=== PATIENT | female | born 1980 | race American Indian/Alaskan Native ===

== ENCOUNTER 2016-12-13 01:15 | Emergency (ER) | payer OTHER ==
[2016-12-13 01:35] VITALS: BP 105/66
[2016-12-13] MEDS ORDERED: FLEXERIL PO ONE (02:09)
[2016-12-13 02:20] LABS: Urine Drugs of Abuse Note Disclamer
[2016-12-13 02:25] LABS: Bilirubin,Urine NEG (Negative); Blood,Urine NEG (Negative); Ketones,Urine NEG (Negative); Leukocyte Esterase,Urine TR (Negative); Mucus,Urine FEW /HPF; Nitrite,Urine NEG (Negative); Protein,Urine <15 mg/dL mg/dL (Negative); Urobilinogen,Urine < 2.0 mg/dL (<2.0); WBC,Urine < 1.0 /HPF (0.0-6.0)
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
[2016-12-13] MEDS ORDERED: TORADOL IM ONE (02:45)
== END 2016-12-13 03:28 | disposition home or self-care (01) ==
LOC: ED 01:15
DX: M79.1 Myalgia (principal); V03.99XA Pedestrian with other conveyance injured in collision with car, pick-up truck or van, unspecified whether traffic or nontraffic accident, initial encounter; Y93.89 Activity, other specified; Y99.9 Unspecified external cause status; Y92.410 Unspecified street and highway as the place of occurrence of the external cause
CPT/HCPCS: 80307; 81001; 81025; 96372; 99284; J1885

== ENCOUNTER 2020-03-30 23:32 | Emergency (ER) | payer SELFPAY ==
[2020-03-30 23:56] VITALS: BP 134/79
--- NOTE | 2020-03-31 01:05 | XRay Report ---
CHEST 2 VIEWS INDICATION: cough and ANGELA. COMPARISON: None. FINDINGS: Support devices: None. Heart: Within normal limits. Lungs/Pleura: No acute air space or interstitial disease. No significant pleural effusion. IMPRESSION: No acute findings. Signer Name: Lyle Richter MD Signed: 03/31/2020 1:01 AM Workstation Name: [id number]
== END 2020-03-31 02:50 | disposition left against medical advice (07) ==
LOC: ED 23:32
DX: R05 Cough (principal); Z53.21 Procedure and treatment not carried out due to patient leaving prior to being seen by health care provider
CPT/HCPCS: 71046

== ENCOUNTER 2020-03-31 16:53 | Emergency (ER) | payer SELFPAY ==
--- NOTE | 2020-04-01 01:32 | Emergency Department Report ---
ED Shortness of Breath HPI - General Chief Complaint: Dyspnea/Respdistress Stated Complaint: ANGELA Time Seen by Provider: 04/01/20 01:24 Source: patient Mode of arrival: Ambulatory Limitations: No Limitations - History of Present Illness Initial Comments: Patient is a 39-year-old female that presents emergency room with complaints of nonproductive cough and difficulty breathing, shortness of breath and sore throat. Patient states her symptoms started yesterday. Patient states that she was seen here earlier this morning and had a chest x-ray and discharged home. Patient states her symptoms are worsening. Patient denies chest pain. Patient states that her shortness of breath and difficulty breathing are better with rest and worse with exertion. Patient denies any sputum production. Patient denies fever and chills. Patient denies abdominal pain. Patient denies nausea and vomiting. Patient denies recent travel. Patient denies recent international travel. Patient denies exposure to the novel coronavirus. Patient denies sick contacts. Patient denies fever and chills. Patient denies diarrhea. Patient denies coming in contact with anybody with symptoms of the novel coronavirus. MD Complaint: shortness of breath, cough -: Sudden Severity: severe Consistency: constant Improves With: rest Worsens With: exertion Context: recent URI Associated Symptoms: other (sore throat) - Related Data Previous Rx's Medication Instructions Recorded Last Taken Type Cyclobenzaprine [Flexeril 10 MG 10 mg PO QHS #20 tablet 12/13/16 Unknown Rx TAB] Ibuprofen [Motrin] 800 mg PO Q8HR PRN #30 tablet 12/13/16 Unknown Rx Azithromycin [Zithromax TAB] 500 mg PO QDAY 5 Days #5 tablet 04/01/20 Unknown Rx Dexamethasone [Taperdex] 1.5 mg PO DAILY 7 Days #1 tab.ds.pk 04/01/20 Unknown Rx Allergies Allergy/AdvReac Type Severity Reaction Status Date / Time No Known Allergies Allergy Unverified 12/13/16 01:35 ED Review of Systems ROS: Stated complaint: ANGELA Other details as noted in HPI Constitutional: denies: chills, fever Eyes: denies: eye pain, eye discharge, vision change ENT: throat pain. denies: ear pain Respiratory: cough, shortness of breath. denies: wheezing Cardiovascular: denies: chest pain, palpitations Endocrine: no symptoms reported Gastrointestinal: denies: abdominal pain, nausea, diarrhea Genitourinary: denies: urgency, dysuria, discharge Musculoskeletal: denies: back pain, joint swelling, arthralgia Skin: denies: rash, lesions Neurological: denies: headache, weakness, paresthesias Psychiatric: denies: anxiety, depression Hematological/Lymphatic: denies: easy bleeding, easy bruising ED Past Medical Hx - Past Medical History Previous Medical History?: No - Surgical History Past Surgical History?: No Additional Surgical History: X 2 - Family History Family history: no significant - Social History Smoking Status: Current Every Day Smoker Substance Use Type: Marijuana - Medications Home Medications: Home Medications Medication Instructions Recorded Confirmed Last Taken Type Cyclobenzaprine [Flexeril 10 MG 10 mg PO QHS #20 tablet 12/13/16 Unknown Rx TAB] Ibuprofen [Motrin] 800 mg PO Q8HR PRN #30 tablet 12/13/16 Unknown Rx Azithromycin [Zithromax TAB] 500 mg PO QDAY 5 Days #5 tablet 04/01/20 Unknown Rx Dexamethasone [Taperdex] 1.5 mg PO DAILY 7 Days #1 tab.ds.pk 04/01/20 Unknown Rx ED Physical Exam - General Limitations: No Limitations General appearance: alert, in no apparent distress - Head Head exam: Present: atraumatic, normocephalic - Eye Eye exam: Present: normal appearance, PERRL Pupils: Present: normal accommodation - ENT ENT exam: Present: mucous membranes moist, TM's normal bilaterally, other (Mild erythema to the oropharynx) - Neck Neck exam: Present: normal inspection. Absent: tenderness, meningismus, full ROM - Respiratory Respiratory exam: Present: normal lung sounds bilaterally. Absent: respiratory distress, wheezes, rales - Cardiovascular Cardiovascular Exam: Present: regular rate, normal rhythm. Absent: systolic murmur, diastolic murmur, rubs, gallop - GI/Abdominal GI/Abdominal exam: Present: soft, normal bowel sounds. Absent: distended, tenderness, guarding - Rectal Rectal exam: Present: deferred - Extremities Exam Extremities exam: Present: normal inspection - Back Exam Back exam: Present: normal inspection - Neurological Exam Neurological exam: Present: alert, oriented X3 - Psychiatric Psychiatric exam: Present: normal affect, normal mood - Skin Skin exam: Present: warm, dry, intact, normal color. Absent: rash ED Course Vital Signs 03/31/20 03/31/20 03/31/20 17:45 20:51 21:00 Temperature 97.8 F Pulse Rate 66 Respiratory 18 Rate Blood Pressure 132/75 132/75 Blood Pressure 114/71 [Right] O2 Sat by Pulse 100 96 99 Oximetry 03/31/20 03/31/20 04/01/20 21:18 21:30 00:51 Temperature Pulse Rate 80 Respiratory 40 H Rate Blood Pressure 125/78 125/78 125/78 Blood Pressure [Right] O2 Sat by Pulse 55 L 88 Oximetry 04/01/20 04/01/20 04/01/20 01:00 01:15 01:30 Temperature Pulse Rate Respiratory Rate Blood Pressure 133/84 133/84 147/88 Blood Pressure [Right] O2 Sat by Pulse 100 100 98 Oximetry 04/01/20 04/01/20 04/01/20 01:45 02:00 02:15 Temperature Pulse Rate Respiratory Rate Blood Pressure 141/89 135/77 145/86 Blood Pressure [Right] O2 Sat by Pulse 100 99 99 Oximetry 04/01/20 04/01/20 02:30 04:08 Temperature Pulse Rate 78 Respiratory 18 Rate Blood Pressure 129/91 Blood Pressure 138/72 [Right] O2 Sat by Pulse 100 100 Oximetry - Reevaluation(s) Reevaluation #1: I discussed all results and clinical findings with patient. I discussed plan of care with patient. Patient agrees with plan of care. Patient is stable for discharge. Patient will be discharged home. Patient given discharge instructions. Patient voiced understanding of discharge instructions. 04/01/20 03:53 ED Medical Decision Making - Lab Data Result diagrams: 04/01/20 01:40 04/01/20 01:40 - Radiology Data Radiology results: report reviewed, image reviewed interpreted by me: Chest x-ray: No pneumonia, no pneumothorax, no foreign body, no osseous findings , no acute findings CHEST 1 VIEW 04/01/2020 1:46 AM INDICATION / CLINICAL INFORMATION: Dyspnea. COMPARISON: 03/31/2020 FINDINGS: SUPPORT DEVICES: None. HEART / MEDIASTINUM: No significant abnormality. LUNGS / PLEURA: No significant pulmonary or pleural abnormality. No pneumothorax. ADDITIONAL FINDINGS: No significant additional findings. IMPRESSION: 1. No acute findings. - Medical Decision Making Patient is a 39-year-old female that presents emergency room for the second time in the last 24 hours for shortness of breath, cough and URI symptoms. Patient also complained of sore throat. Patient's previous ER visit the patient had a chest x-ray only. Patient's chest x-ray at that visit was negative for acute findings. Patient had a chest x-ray at this visit to reassess the possibility of pneumonia and the patient chest x-ray was negative for acute findings. Patient had labs done which were essentially unremarkable. Patient's has some clinical features of COVID-19. Patient given COVID-19 precautions. Patient also given Z-Sharad and a TaperDex pack. - Differential Diagnosis Shortness of breath, URI, COVID-19, pneumonia, cough Critical care attestation.: If time is entered above; I have spent that time in minutes in the direct care of this critically ill patient, excluding procedure time. ED Disposition Clinical Impression: Person under investigation for COVID-19, SOB (shortness of breath), Cough Upper respiratory infection Qualifiers: URI type: unspecified viral URI Qualified Code(s): J06.9 - Acute upper respiratory infection, unspecified Disposition: DC- TO HOME OR SELFCARE Is pt being admited?: No Does the pt Need Aspirin: No Condition: Stable Instructions: COVID-19, Upper Respiratory Infection (ED), Cold Symptoms (ED) Additional Instructions: Patient to follow-up with primary care in 2 to 3 days. Patient to follow-up with [facility] in 2 to 3 days. Patient to have COVID testing done. Patient to self quarantine for 14 days. Patient to rest. Patient to increase water. Patient to take Tylenol as needed for pain. Patient to take meds as directed. Patient to return to the ER if condition worsens, changes or new symptoms arise. Prescriptions: Dexamethasone [Taperdex] 1.5 mg PO DAILY 7 Days #1 tab.ds.pk Azithromycin [Zithromax TAB] 500 mg PO QDAY 5 Days #5 tablet Referrals: PRIMARY CARE, [Primary Care Provider] - 2-3 Days Time of Disposition: 03:59
[2020-04-01 01:52] LABS: Basophils % (Auto) 0.2 % (0.0-1.8); Eosinophils # (Auto) 0.1 K/mm3 (0.0-0.4); Eosinophils % (Auto) 1.3 % (0.0-4.3); Hematocrit 38.9 % (30.3-42.9); Hemoglobin 13.3 gm/dl (10.1-14.3); Lymphocytes # (Auto) 1.9 K/mm3 (1.2-5.4); Lymphocytes % (Auto) 41.9 % (13.4-35.0); Mean Corpuscular HGB Conc 34 % (30-34); Mean Corpuscular Volume 95 fl (79-97); Monocytes # (Auto) 0.4 K/mm3 (0.0-0.8); Monocytes % (Auto) 8.7 % (0.0-7.3); Platelet Count 279 K/mm3 (140-440); Red Blood Count 4.12 M/mm3 (3.65-5.03); Red Cell Distribution Width 13.8 % (13.2-15.2)
--- NOTE | 2020-04-01 02:14 | XRay Report ---
CHEST 1 VIEW 04/01/2020 1:46 AM INDICATION / CLINICAL INFORMATION: Dyspnea. COMPARISON: 03/31/2020 FINDINGS: SUPPORT DEVICES: None. HEART / MEDIASTINUM: No significant abnormality. LUNGS / PLEURA: No significant pulmonary or pleural abnormality. No pneumothorax. ADDITIONAL FINDINGS: No significant additional findings. IMPRESSION: 1. No acute findings. Signer Name: Edenilson Chapin MD Signed: 04/01/2020 2:10 AM Workstation Name: [id number]
[2020-04-01 02:16] LABS: Alanine Aminotransferase 16 units/L (7-56); Albumin 4.2 g/dL (3.9-5); Blood Urea Nitrogen 17 mg/dL (7-17); Calcium 9.4 mg/dL (8.4-10.2); Hemolysis Index 2
[2020-04-01 02:23] LABS: BUN/Creatinine Ratio 24
[2020-04-01 04:09] VITALS: BP 138/72
== END 2020-04-01 04:08 | disposition home or self-care (01) ==
LOC: ED 16:53
DX: J06.9 Acute upper respiratory infection, unspecified (principal); R06.02 Shortness of breath; R05 Cough; Z03.818 Encounter for observation for suspected exposure to other biological agents ruled out
CPT/HCPCS: 36415; 71045; 80053; 85025; 85379